=== PATIENT | female | born 1940 | race Caucasian/White ===

== ENCOUNTER 2016-11-17 09:41 | Day surgery (SDC) | payer MEDICARE, BC ==
[~2016-11-17 09:41] MED LIST: RINGERS SOLUTION,LACTATED 1,000 ML IV PRN
[2016-11-17] MEDS ORDERED: RINGERS SOLUTION,LACTATED 1,000 ML IV ONE (11:55)
[2016-11-17 13:41] VITALS: BP 152/77
--- NOTE | 2016-11-17 14:06 | OR ---
Operative Report - Dictated Report Narrative: Date: 11/17/2016 Preop diagnosis: Hx colon polyps, s/p right transverse colectomy for tubulovillous adenoma Postop diagnosis: Polyp at 25 and 20 cm Procedure: Total colonoscopy with biopsy of polyp at 25 and 20 cm Staff Surgeon: Itz Arevalo MD Anesthesia: MAC per [employer] Specimen: Polyps at 25 and 20 cm EBL: minimal Complications: none apparent Description: After informed consent and the induction of conscious sedation the patient was placed in the left lateral decubitus position. A flexible video endoscope was inserted and advanced without difficulty under direct vision to the cecum. The usual landmarks were identified. Preparation was excellent and excellent views were obtained. The scope was slowly withdrawn. The colon was surgically foreshortened. Anastomosis was widely patent and without evidence of recurrence. Cecum and ascending colon were normal. Splenic flexure was normal. Descending and sigmoid colon was normal. Sigmoid was normal. A polyp was noted at 25 cm and was biopsied with cold forceps. The remainder of the polyp was destroyed with cautery. An additional polyp was noted at 20cm and treated in a similar fashion. The patient tolerated the procedure well and was discharged from the endoscopy suite in stable condition.
== END 2016-11-17 09:42 | disposition home or self-care (01) ==
LOC: AMB 09:41
PROVIDERS: ATTEND Specialist
PROC: 0DBE8ZX Excision of Large Intestine, Via Natural or Artificial Opening Endoscopic, Diagnostic (ICD-10-PCS; principal; 2016-11-17 11:45)
DX: Z12.11 Encounter for screening for malignant neoplasm of colon (principal); K63.5 Polyp of colon; I10 Essential (primary) hypertension; Z68.28 Body mass index [BMI] 28.0-28.9, adult